=== PATIENT | female | born 1950 | race Caucasian/White ===

== ENCOUNTER → 2020-12-07 | Outpatient (CLI) | payer OTHER ==
[~2020-12-07] MED LIST: FLEXERIL 10 MG10 MG PO; TORADOL 10 MG T10 MG PO
== END ==
LOC: EXRD 15:00
DX: M54.2 Cervicalgia (principal)
CPT/HCPCS: 76536

== ENCOUNTER → 2021-06-24 | Outpatient (CLI) | payer OTHER | LOC: CT 06-23 10:30 | DX: I65.22 Occlusion and stenosis of left carotid artery (principal) | CPT/HCPCS: 36415; 70498; 82565; 84520; Q9967 ==